=== PATIENT | female | born 1980 | race Caucasian/White ===

== ENCOUNTER 2016-11-21 11:47 | Emergency (ER) | payer BC, OTHER ==
[~2016-11-21] VITALS: Ht 162.6 cm; Wt 81.0 kg
[~2016-11-21 11:47] MED LIST: BIOT1CAP8 PO; CALC500T83; CHOL100027 PO; PEDICHW50 PO; TAMS0.4C38 PO
[2016-11-21 11:58] VITALS: TEMP 36.9; Ht 162.6 cm; Wt 81.0 kg
[2016-11-21 12:15] VITALS: O2SAT 98
[2016-11-21 13:53] LABS: BASO % 0.9 %; BASO ABS # 0.07 K/uL (0-0.2); COMPLETE YES; HEMATOCRIT 39.4 % (37-47); IG% 0.3 %; LYMPH % 41.2 %; LYMPH ABS # 3.28 K/uL (1.2-3.4); MEAN CORPUSCULAR HEMOGLOBIN 31.4 pg (25-34); MEAN CORPUSCULAR HGB CONC 34.5 g/dl (32-36); MONO % 9.9 %; NEUT % 45.7 %; PLATELET COUNT 345 K/uL (130-400); RED BLOOD COUNT 4.33 M/uL (4.2-5.4); WHITE BLOOD COUNT 7.97 K/uL (4.8-10.8)
--- NOTE | 2016-11-21 13:55 | DIAGNOSTIC IMAGING REPORT ---
SINGLE VIEW CHEST CLINICAL HISTORY: Seizure. FINDINGS: An AP, portable, upright chest radiograph is compared to study dated 06/22/2015 and correlated with chest CT dated 08/08/2016. The examination is degraded by portable technique and apical lordotic positioning. The cardiomediastinal silhouette is unremarkable. The lungs and pleural spaces are clear. No pneumothorax is seen. The bony thorax is grossly intact. IMPRESSION: No active disease in the chest. Electronically signed by: Yunier Montalvo M.D. 11/21/2016 1:54 PM Dictated Date/Time: 11/21/2016 1:53 PM
[2016-11-21 14:02] LABS: ALT/SGPT 18 U/L (12-78); BLOOD UREA NITROGEN 14 mg/dl (7-18); BUN/CREATININE RATIO 16.3 (10-20); CALCIUM 8.5 mg/dl (8.5-10.1); CARBON DIOXIDE 16 mmol/L (21-32); CHLORIDE 106 mmol/L (98-107); CREATININE 0.84 mg/dl (0.60-1.20); GLUCOSE 51 mg/dl (70-99); MAGNESIUM 2.4 mg/dl (1.8-2.4); POTASSIUM 3.3 mmol/L (3.5-5.1); SODIUM 140 mmol/L (136-145)
[2016-11-21 14:03] LABS: PROTHROMBIN TIME (PATIENT) 10.5 SECONDS (9.0-12.0)
[2016-11-21 14:11] LABS: ALB/GLOB RATIO 0.9 (0.9-2); ALKALINE PHOSPHATASE 62 U/L (45-117); AST/SGOT 12 U/L (15-37); PHOSPHORUS 2.6 mg/dl (2.5-4.9)
--- NOTE | 2016-11-21 14:17 | DIAGNOSTIC IMAGING REPORT ---
CT SCAN OF THE BRAIN WITHOUT IV CONTRAST CLINICAL HISTORY: Seizure. COMPARISON STUDY: No priors. TECHNIQUE: Unenhanced axial CT scan of the brain is performed from the vertex to the skull base. Automated dose control exposure was utilized. CT DOSE: 537.48 mGy.cm FINDINGS: Brain parenchyma: The brain parenchyma is normal in appearance. There is no hemorrhage, mass effect, or evidence of acute territorial ischemia by CT criteria. Perkins-white matter is preserved. A choroid fissure cyst or prominent perivascular space is incidentally noted in the right basal ganglia. No extra-axial fluid collection is seen. Ventricles, sulci, cisterns: Normal in configuration. Intracranial vasculature: The visualized intracranial vasculature at the skull base is normal in appearance. Calvarium: Unremarkable. Sinuses and mastoids: The visualized paranasal sinuses are clear. The mastoid air cells are well pneumatized. Orbits: The bony orbits are grossly intact. IMPRESSION: No acute intracranial abnormality. Electronically signed by: Yunier Montalvo M.D. 11/21/2016 2:16 PM Dictated Date/Time: 11/21/2016 2:13 PM
[2016-11-21 14:29] LABS: URINE APPEARANCE CLEAR (CLEAR); URINE BILIRUBIN NEG (NEG); URINE COLOR YELLOW; URINE EPITHELIAL CELL AUTO >30 /lpf (0-5); URINE NITRITE NEG (NEG); URINE SPECIFIC GRAVITY 1.011 (1.000-1.030); UROBILINOGEN NEG (NEG); ZZUR CULT IF INDIC CLEAN CATCH YES
[2016-11-21] MEDS ORDERED: OPTIRAY 320 IV PRN (14:30)
[2016-11-21 14:35] LABS: MANUAL MICROSCOPIC REQUIRED? NO; REVIEW REQ? NO
[2016-11-21 15:11] LABS: BENZODIAZEPINE, URINE NEG (NEG); COCAINE,URINE NEG (NEG); PHENCYCLIDINE, URINE NEG (NEG)
--- NOTE | 2016-11-21 16:12 | DIAGNOSTIC IMAGING REPORT ---
CT ANGIOGRAPHY OF THE CHEST, PULMONARY EMBOLUS PROTOCOL CLINICAL HISTORY: Seizure. Elevated d-dimer. COMPARISON STUDY: Chest CT August 08, 2016 and chest radiograph performed earlier today. TECHNIQUE: Following IV administration of 96 mL of Optiray-320, helical axial images of the chest were obtained utilizing the pulmonary embolus protocol. Maximal intensity projections and sagittal and coronal reformats were viewed on an independent 3D workstation. IV contrast was administered without complication. CT DOSE: 366.30 mGycm FINDINGS: No pulmonary emboli are identified. There is no evidence of thoracic aortic dissection. Size of the heart is at the upper limits of normal. There is no thoracic lymphadenopathy. No pneumothorax or pleural effusion is present. Central airways are patent. Groundglass opacities likely reflect atelectasis. Bony thorax and upper abdomen are unremarkable with exception of a previous gastric bypass. IMPRESSION: 1. No pulmonary emboli identified. 2. No acute intrathoracic findings. Electronically signed by: Nicola Muro M.D. 11/21/2016 4:11 PM Dictated Date/Time: 11/21/2016 4:04 PM
--- NOTE | 2016-11-21 16:48 | EMERGENCY ROOM VISIT NOTE ---
History First contact with patient: 13:08 Chief Complaint: HYPOGLYCEMIA Stated Complaint: HYPOGLYCEMIA Nursing Triage Summary: patient to ED via ALS for seizure and hypoglycemic episode. Patient AAO at time of triage but slow to respond. Per witnesses, patient was at [employer] waiting for lunch, said she felt dizzy and shortly thereafter began to seize. Generlilzed shaking lasting 2-3 minutes. Denies hx of epilepsy, diabetes. Per medic, patient's bsg was 44 on scene, given D10 with repeat BSG 117. 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 Hx gastric bypass 2 years ago. History of Present Illness The patient is a 36 year old female who presents to the Emergency Department via EMS for evaluation of a seizure. 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 She was going to lunch with a friend at the [employer] when she reports feeling trouble with her vision as well as lightheaded and clammy. Her friend, an RN, reports the patient then began seizing. She had generalized jpils-[id number]-bqsl seizure with drooling for approximately 2 minutes. Her symptoms did resolve without intervention. She was postictal for several minutes after. Upon EMS arrival, EMS reports the patient remained postictal until she received an IV dose of dextrose. After receiving the dextrose, as her glucose was found to be 44, the patient immediately had returned to baseline. The patient reports no history of hypoglycemia otherwise. She does report a history of Tiffanie-en-Y [address] Cervantes at [facility]. She reports that she' s had no real recent issues of dumping syndrome or diarrhea recently otherwise. Her procedure was performed for weight loss exclusively. She had no intra- abdominal tumors or other concerns which prompted the procedure. The patient currently complains of some joint aches and pains, but denies any other real symptoms. She reports no headaches, dizziness, blurry vision, double vision, slurred speech, facial droop, unilateral weakness/numbness, chest pain, palpitations, short of breath, nausea, vomiting, hematochezia, melena, hematuria , or dysuria. She denies a chance for . Review of Systems A complete 10-point Review of Systems was discussed with the patient, with pertinent positives and negatives listed in the History of Present Illness. All remaining Review of Systems questions can be considered negative unless otherwise specified. Past Medical/Surgical History Medical Problems: (1) Migraine Surgical Problems: (1) Gastric bypass status for obesity (2) H/O dilation and curettage (3) S/P cholecystectomy (4) [place] teeth extracted Family History Cancer Gallbladder disease Social History Smoking Status: Never Smoker Smokeless Tobacco Use: No Alcohol Use: none Drug Use: none Marital Status: Housing Status: lives with family Occupation Status: employed Current/Historical Medications Scheduled Calcium (Calcium), 500 MG TID Cholecalciferol (Vitamin D 1000 Unit), 1,000 INTER.UNIT PO BID Pediatric Multiple Vitamin W/ (Flintstones Chewable), 1 TAB PO BID Tamsulosin Hcl (Flomax), 1 CAP PO DAILY Allergies Coded Allergies: Penicillins (Verified Allergy, Unknown, 11/21/16) Physical Exam Vital Signs Date Time Temp Pulse Resp B/P Pulse Ox O2 Delivery O2 Flow Rate FiO2 11/21/16 17:00 76 20 117/72 98 Room Air 11/21/16 15:00 112/59 11/21/16 13:47 81 19 96 11/21/16 13:45 78 18 117/78 96 Room Air 11/21/16 13:28 117/78 11/21/16 13:17 85 24 96 11/21/16 12:53 131/74 11/21/16 12:47 86 17 96 11/21/16 12:23 88 11/21/16 12:15 98 Room Air 11/21/16 11:58 36.9 91 20 121/78 98 Room Air 11/21/16 11:56 121/78 Pain Rating (0-10): 0 Physical Exam VITAL SIGNS - Vital signs and nursing notes were reviewed. GENERAL - 36-year-old female appearing her stated age who is in no acute distress. Communicates well with provider and answers questions appropriately. HEAD - Normocephalic, Atraumatic. No Danielson's Sign or Raccoon's Eyes. No depressed skull fractures palpable. EYES - PERRL with EOMI bilaterally. Sclera anicteric. Palpebral conjunctiva pink and moist with no injection noted. EARS - No deformities of external structures noted on gross examination bilaterally. No pain elicited with palpation of the tragus bilaterally. External auditory canals without discharge or otorrhea. Tympanic membranes pearly perkins without retraction or bulging. NOSE - Midline and without cyanosis. No epistaxis or purulent drainage noted. Septum midline without deviation or septal hematoma noted. MOUTH/OROPHARYNX - Without perioral cyanosis. Buccal mucosa pink and moist and without leukoplakia. Tongue midline with equal elevation of palate bilaterally. No tonsillar hypertrophy, erythema, or exudates noted. Good dentition noted. NECK - Neck with FROM. Supple to palpation. No lymphadenopathy noted. No nuchal rigidity. LUNGS - Chest wall symmetric without accessory muscle use, intercostals retractions, or central cyanosis. Normal vesicular breath sounds CTA B/L. No wheezes, rales, or rhonchi appreciated. CARDIAC - RRR with S1/S2. No murmur, rubs, or gallops appreciated. ABDOMEN - Abdominal contour obese and without pulsations or visible masses. BS normoactive all four quadrants. No tenderness, palpable masses, hepatosplenomegaly, or ascites noted. EXTREMITIES - No pretibial edema present. +3/5 radial and dorsalis pedis pulses palpated throughout. FROM with no tremors, fasciculations, or clonus noted on PROM throughout. +5/5 strength noted in UE/LE bilaterally. NEUROLOGIC - Cranial nerves II through XII grossly intact. Sensory intact to light touch throughout. Patellar reflexes +2/4. Patient able to perform rapid alternating movements appropriately. Negative Pronator Drift. Negative finger-to -nose. PSYCH - A&Ox3 and cooperates fully with examiner. Pt is very pleasant and interacts well with examiner. Medical Decision & Procedures ER Provider Diagnostic Interpretation: Radiological imaging and reports were reviewed by myself. Radiologist's Interpretation as follows: SINGLE VIEW CHEST CLINICAL HISTORY: Seizure. FINDINGS: An AP, portable, upright chest radiograph is compared to study dated 06/22/2015 and correlated with chest CT dated 08/08/2016. The examination is degraded by portable technique and apical lordotic positioning. The cardiomediastinal silhouette is unremarkable. The lungs and pleural spaces are clear. No pneumothorax is seen. The bony thorax is grossly intact. IMPRESSION: No active disease in the chest. CT SCAN OF THE BRAIN WITHOUT IV CONTRAST CLINICAL HISTORY: Seizure. COMPARISON STUDY: No priors. TECHNIQUE: Unenhanced axial CT scan of the brain is performed from the vertex to the skull base. Automated dose control exposure was utilized. CT DOSE: 537.48 mGy.cm FINDINGS: Brain parenchyma: The brain parenchyma is normal in appearance. There is no hemorrhage, mass effect, or evidence of acute territorial ischemia by CT criteria. Perkins-white matter is preserved. A choroid fissure cyst or prominent perivascular space is incidentally noted in the right basal ganglia. No extra-axial fluid collection is seen. Ventricles, sulci, cisterns: Normal in configuration. Intracranial vasculature: The visualized intracranial vasculature at the skull base is normal in appearance. Calvarium: Unremarkable. Sinuses and mastoids: The visualized paranasal sinuses are clear. The mastoid air cells are well pneumatized. Orbits: The bony orbits are grossly intact. IMPRESSION: No acute intracranial abnormality. CT ANGIOGRAPHY OF THE CHEST, PULMONARY EMBOLUS PROTOCOL CLINICAL HISTORY: Seizure. Elevated d-dimer. COMPARISON STUDY: Chest CT August 08, 2016 and chest radiograph performed earlier today. TECHNIQUE: Following IV administration of 96 mL of Optiray-320, helical axial images of the chest were obtained utilizing the pulmonary embolus protocol. Maximal intensity projections and sagittal and coronal reformats were viewed on an independent 3D workstation. IV contrast was administered without complication. CT DOSE: 366.30 mGycm FINDINGS: No pulmonary emboli are identified. There is no evidence of thoracic aortic dissection. Size of the heart is at the upper limits of normal. There is no thoracic lymphadenopathy. No pneumothorax or pleural effusion is present. Central airways are patent. Groundglass opacities likely reflect atelectasis. Bony thorax and upper abdomen are unremarkable with exception of a previous gastric bypass. IMPRESSION: 1. No pulmonary emboli identified. 2. No acute intrathoracic findings. Laboratory Results 11/21/16 11:40 Red Blood Count 4.33, Mean Corpuscular Volume 91.0, Mean Corpuscular Hemoglobin 31.4, Mean Corpuscular Hemoglobin Concent 34.5, Mean Platelet Volume 10.0, Neutrophils (%) (Auto) 45.7, Lymphocytes (%) (Auto) 41.2, Monocytes (%) (Auto) 9.9, Eosinophils (%) (Auto) 2.0, Basophils (%) (Auto) 0.9, Neutrophils # (Auto) 3.65, Lymphocytes # (Auto) 3.28, Monocytes # (Auto) 0.79, Eosinophils # (Auto) 0.16, Basophils # (Auto) 0.07 11/21/16 11:40 Test 11/21/16 11:40 11/21/16 11:54 11/21/16 13:49 11/21/16 14:06 White Blood Count 7.97 K/uL (4.8-10.8) Red Blood Count 4.33 M/uL (4.2-5.4) Hemoglobin 13.6 g/dL (12.0-16.0) Hematocrit 39.4 % (37-47) Mean Corpuscular Volume 91.0 fL (80-100) Mean Corpuscular Hemoglobin 31.4 pg (25-34) Mean Corpuscular Hemoglobin Concent 34.5 g/dl (32-36) Platelet Count 345 K/uL (130-400) Mean Platelet Volume 10.0 fL (7.4-10.4) Neutrophils (%) (Auto) 45.7 % Lymphocytes (%) (Auto) 41.2 % Monocytes (%) (Auto) 9.9 % Eosinophils (%) (Auto) 2.0 % Basophils (%) (Auto) 0.9 % Neutrophils # (Auto) 3.65 K/uL (1.4-6.5) Lymphocytes # (Auto) 3.28 K/uL (1.2-3.4) Monocytes # (Auto) 0.79 K/uL (0.11-0.59) Eosinophils # (Auto) 0.16 K/uL (0-0.5) Basophils # (Auto) 0.07 K/uL (0-0.2) RDW Standard Deviation 40.7 fL (36.4-46.3) RDW Coefficient of Variation 12.2 % (11.5-14.5) Immature Granulocyte % (Auto) 0.3 % Immature Granulocyte # (Auto) 0.02 K/uL (0.00-0.02) Prothrombin Time 10.5 SECONDS (9.0-12.0) Prothromb Time International Ratio 1.0 (0.9-1.1) Activated Partial Thromboplast Time 25.0 SECONDS (21.0-31.0) Partial Thromboplastin Ratio 1.0 Anion Gap 18.0 mmol/L (3-11) Est Creatinine Clear Calc Drug Dose 96.3 ml/min Estimated GFR () 104.4 Estimated GFR (Non- 90.0 BUN/Creatinine Ratio 16.3 (10-20) Calcium Level 8.5 mg/dl (8.5-10.1) Phosphorus Level 2.6 mg/dl (2.5-4.9) Magnesium Level 2.4 mg/dl (1.8-2.4) Total Bilirubin 0.6 mg/dl (0.2-1) Aspartate Amino Transf (AST/SGOT) 12 U/L (15-37) Alanine Aminotransferase (ALT/SGPT) 18 U/L (12-78) Alkaline Phosphatase 62 U/L (45-117) Total Creatine Kinase 76 U/L (26-192) Creatine Kinase MB < 0.5 ng/ml (0.5-3.6) Creatine Kinase MB Ratio (0-3.0) Total Protein 7.8 gm/dl (6.4-8.2) Albumin 3.7 gm/dl (3.4-5.0) Globulin 4.1 gm/dl (2.5-4.0) Albumin/Globulin Ratio 0.9 (0.9-2) Lipase 128 U/L (73-393) Thyroid Stimulating Hormone (TSH) 3.900 uIu/ml (0.300-4.500) Bedside Glucose 117 mg/dl (70-90) Ethyl Alcohol mg/dL < 3.0 mg/dl (0-3) Urine Color YELLOW Urine Appearance CLEAR (CLEAR) Urine pH 5.0 (4.5-7.5) Urine Specific [place] 1.011 (1.000-1.030) Urine Protein NEG (NEG) Urine Glucose (UA) TRACE (NEG) Urine Ketones NEG (NEG) Urine Occult Blood TRACE (NEG) Urine Nitrite NEG (NEG) Urine Bilirubin NEG (NEG) Urine Urobilinogen NEG (NEG) Urine Leukocyte Esterase SMALL (NEG) Urine WBC (Auto) 5-10 /hpf (0-5) Urine RBC (Auto) 0-4 /hpf (0-4) Urine Hyaline Casts (Auto) 1-5 /lpf (0-5) Urine Epithelial Cells (Auto) >30 /lpf (0-5) Urine Bacteria (Auto) 1+ (NEG) Urine Test NEG (NEG) Urine Opiates Screen NEG (NEG) Urine Methadone, Qualitative NEG (NEG) Urine Barbiturates NEG (NEG) Urine Phencyclidine (PCP) Level NEG (NEG) Ur Amphetamine/Methamphetamine NEG (NEG) MDMA (Ecstasy) Screen NEG (NEG) Urine Benzodiazepines Screen NEG (NEG) Urine Cocaine Metabolite NEG (NEG) Urine Marijuana (THC) NEG (NEG) Date/Time Source Procedure Growth Status 11/21/16 14:06 Urine , Clean Catch Urine Culture - Final MORE THAN THREE TYPES OF ORGANISMS MD... Complete Procedure Patient was placed on the cardiac rn and monitored throughout the entire extent of their stay. In addition, the patient's pulse oximetry was monitored throughout the entire stay. Any abnormalities or aberrancies were addressed appropriately. ECG Indication: other (seizure) Rate (beats per minute): 82 Rhythm: normal sinus Findings: no acute ischemic change, no ectopy Change: no significant change (from 06/22/2015.) ED Course Patient was seen and evaluated by myself. Labs were drawn, saline lock in place. Patient declines a think for pain at this time. CT the head and chest x -ray were obtained. EKG was obtained. Patient's initial BSG was found to be 44. She responded nicely to IV dextrose. Laboratory results demonstrate no acute leukocytosis, worrisome anemia, or bandemia. The patient has no significant electrolyte abnormalities. Cardiac enzymes were negative. Troponin was negative. D-dimer was elevated. Laboratory results and imaging studies were discussed with the patient who acknowledges understand. CT of the chest was obtained. CTA was otherwise unremarkable. Case was discussed with my attending physician who agrees with the diagnostic approach and treatment plan. The patient was encouraged to eat many small meals and follow up closely with her primary care provider from today's visit. She was educated on worrisome symptoms for return visit to the emergency department. Patient discharged home in good condition. Medical Decision Given the patient's presentation and stated complaints, I did elect to perform the above-mentioned workup. The patient resents today after seizure-like activity a restaurant. Her blood glucose was found to be 44. The patient has no history of diabetes or insulin issues otherwise. On presentation, she is alert, awake, and oriented 3 after receiving IV dextrose. She remains a symptomatically throughout her entire stay in the emergency department. Laboratory assessment, imaging studies, and other evaluations are otherwise unremarkable. The patient is likely experiencing an acute hypoglycemic seizure- like episode. I do not feel the patient's license should be suspended at this point. She was symptomatic prior to this episode of seizure-like activity. This is a one-time event at this point. She is not a diabetic. She will follow closely with her primary care provider from today's visit. She will return in the setting of any change or worsening symptoms. Patient discharged home in good condition. In the evaluation and treatment of this patient, the following differential diagnoses were considered: Migraine Headache, Intracranial Hemorrhage, Subdural Hematoma, Subarachnoid Hemorrhage, Cerebral Aneurysm, Temporal/Giant Cell Arteritis, Tension Headache, Meningitis, Encephalitis, or Hydrocephalus. Impression Primary Impression: Seizure Additional Impression: Hypoglycemia Departure Information Dispostion Home / Self-Care Condition GOOD Referrals Khadijah Ruby PA-C (PCP) Patient Instructions Hypoglycemia, My [facility], Seizures - [facility] Additional Instructions You have been seen in the emergency department today for a seizure secondary to hypoglycemia. Please follow-up with your primary care provider in the next 24-48 hours as discussed. Return for any changing or worsening symptoms. Problem Qualifiers
[2016-11-21 17:00] VITALS: BP 117/72; PULSE 76; O2SAT 98
== END 2016-11-21 17:21 | disposition home or self-care (01) ==
LOC: EDBD 11:47 → C.EDC 11:48
DX: G40.909 Epilepsy, unspecified, not intractable, without status epilepticus (principal); E16.2 Hypoglycemia, unspecified; Z79.899 Other long term (current) drug therapy; Z88.0 Allergy status to penicillin; Z98.84 Bariatric surgery status; Z83.79 Family history of other diseases of the digestive system

== ENCOUNTER → 2016-12-12 | Outpatient (CLI) | payer BC ==
[~2016-12-12] MED LIST changes: -BIOT1CAP8 PO
--- NOTE | 2016-12-12 19:16 | ELECTROENCEPHALOGRAPH REPORT ---
REFERRING PHYSICIAN: Esperanza Bardales. CLINICAL DIAGNOSIS: Seizure on November 07 without prior history of same. EEG DIAGNOSIS: Essentially normal during wakefulness and drowsiness. DESCRIPTION OF TRACING: This EEG was obtained in the laboratory and is of reasonable technical quality, allowing for several muscle movement artifacts recorded throughout the tracing. A simultaneous video analysis was performed. Photic stimulation was not performed. Drowsiness was obtained, but fully sustained sleep was not seen. Under these conditions, there is evidence for normal appearing background rhythm in the alpha range of up to 10 Hz of maximum frequency and 30 microvolts of maximum amplitude. This is maximum posterior head regions bilaterally symmetrical. Polymorphic mid frequency theta activity is seen over all head regions without clear focal or regional predominance. Anterior head region maximum bilaterally symmetrical low voltage fast activity in the beta range is present. Drowsiness is recorded episodically during which no abnormal activations occur. At no time during the waking her drowsy tracing is there evidence for potential epileptogenic activity in the form of polyspike or spike wave bursts, focal sharp waves or focal spikes. INTERPRETATION: This EEG reveals no evidence for focal or generalized encephalopathy or evidence for potentially epileptogenic activity and is essentially normal. The absence of epileptogenic activity, however, does not exclude the diagnosis of seizure disorder and clinical correlation is required.
== END | disposition home or self-care (01) ==
LOC: C.NEUR 10:10
PROVIDERS: ATTEND Nurse Practitioner Adult Health
DX: R56.9 Unspecified convulsions (principal)